=== PATIENT | female | born 1990 | race Caucasian/White ===

== ENCOUNTER → 2022-10-27 14:13 | Outpatient (BNVA) | payer BC, SELFPAY | PROVIDERS: PCP Family Medicine; Visit Provider Nurse Practitioner | DX: I10 Essential (primary) hypertension (principal) | CPT/HCPCS: 80053; 80061; 84443; 85025 ==

== ENCOUNTER 2023-07-01 17:58 | Emergency (ER) | payer MEDICAID, SELFPAY ==
[2023-07-01 18:07] VITALS: BP 169/100; PULSE 110; RESP 17; TEMP 37.4; O2SAT 97
--- NOTE | 2023-07-01 18:29 | ED_ITS ---
HPI - Abdominal Pain General: Chief Complaint: Abdominal Pain Stated Complaint: ABD Pain\N Time Seen by Provider: 07/01/23 18:27 History of Present Illness: 33-year-old female has been sick on and off for several days. She notes that she has had vomiting and diarrhea as well as right upper quadrant pain for that time. She seemed to get better midweek, but then began to get sick again this weekend. She vomited today again. She still experiencing right upper quadrant pain. No fever. No jaundice. Some diarrhea. No blood in the stool. She does not believe she is . No history of belly surgery. Associated Symptoms: Reports diarrhea, nausea and vomiting; Denies chills, fever(s) and hematochezia Review of Systems Const: Denies: fever(s), chills or body aches Eyes: Denies: change in vision Card: Denies: chest pain or palpitations Resp: Denies: dyspnea, productive cough, non-productive cough or wheezing GI: Reports: abdominal pain, nausea, vomiting and diarrhea; Denies: hematochezia : Denies: difficulty voiding Skin/Breast: Denies: rash Neuro: Denies: headache(s), weakness in extremities, dizziness or confusion PFSH ED PFSH: Medical History COVID-19 virus infection Social History Smoking and tobacco/nicotine status: former use of tobacco/nicotine Second hand smoke exposure: No Alcohol intake: never Physical Exam Const: COMMON NORMALS: no acute distress GENERAL APPEARANCE: cooperative; not ill appearing and not frail appearing HENMT: COMMON NORMALS: normocephalic, atraumatic and Normal external nose present HEAD & SCALP: normocephalic and atraumatic FACE & SINUS: normal facial exam and face symmetric NOSE: Normal external nose present Eye: COMMON NORMALS: Equal, round and reactive pupils present and EOMs intact bilaterally PUPIL: Yes Equal, round and reactive pupils present Neck/C-Spine: GENERAL: Yes trachea midline Chest: CHEST: Yes Symmetrical chest wall rise Resp: COMMON NORMALS: normal respiratory effort, No retractions, No use of accessory muscles and clear to auscultation bilaterally AUSCULTATION: clear to auscultation bilaterally Cardio: COMMON NORMALS: regular rate and regular rhythm RATE: regular rate RHYTHM: regular rhythm GI: COMMON NORMALS: Normal to inspection, nondistended, normoactive bowel sounds present and Soft to palpation PALPATION: Yes Soft to palpation and Yes Tenderness to palpation present (GI) Details: RUQ Extremity: COMMON NORMALS: no pedal edema Neuro: ARTEM COMA SCALE: document GCS findings Artem coma scale eye opening: Spontaneous [place] coma scale verbal response: Orientated [place] coma scale motor response: Obey commands Artem coma scale total score: 15 SENSOR Y EXAM: Yes extremities (intact) Psych: COMMON NORMALS: speech normal SPEECH: Yes normal speech Skin: COMMON NORMALS: no rashes or lesions noted GENERAL SKIN EXAM: no rashes or lesions noted Course Vital Signs: Vital signs: Vital Signs Temperature 99.3 F 07/01/23 18:07 Pulse Rate 90 07/01/23 20:55 Respiratory Rate 16 07/01/23 20:55 Blood Pressure 121/74 07/01/23 20:55 Pulse Oximetry 99 07/01/23 20:55 Oxygen Delivery Me thod Room Air 07/01/23 20:00 MDM - Abdominal Pain Medical Decision Making 33-year-old female with right upper quadrant pain. She has a temperature of 99.3. White blood cell count is 10.5, hemoglobin 14. BMP is normal. Liver enzymes are normal. CRP is mildly elevated at 18. Urinalysis is negative. Gallbladder ultrasound shows a small nonspecific hypoechoic lesion in the liver likely a cyst. The gallbladder is normal. Pain is improved. Differential includes biliary dyskinesia or colic, gastritis, viral gastroenteritis, etc. Lab Data 07/01/23 18:41 07/01/23 18:41 Labs/Radiology: Radiology Impressions Gallbladder Ultrasound 07/01/23 18:55 IMPRESSION: 1. 1.6 x 2.0 x 1.6 cm nonspecific hypoechoic lesion in the liver which could represent complex cyst versus other lesion. 2. Normal gallbladder. Laboratory Results WBC 10.52 10^3/uL (3.29-11.43) 07/01/23 18:41 RBC 4.78 10^6/uL (3.85-5.65) 07/01/23 18:41 Hgb 14.00 g/dL (11.27-16.99) 07/01/23 18:41 Hct 42.1 % (36-47) 11/05/23 18:41 MCV 88.1 fl (85-98) 07/01/23 18:41 MCH 29.3 pg (27-33) 07/01/23 18:41 MCHC 33.3 g/dL (30-55) 07/01/23 18:41 RDW 11.8 % (12.1-15.1) L 07/01/23 18:41 Plt Count 274 10^3/cmm (157-399) 07/01/23 18:41 MPV 9.1 fL (7.4-10.4) 07/01/23 18:41 Neut % (Auto) 60.5 % 07/01/23 18:41 Lymph % (Auto) 20.9 % 07/01/23 18:41 [place] % (Auto) 6.7 % 07/01/23 18:41 Eos % (Auto) 10.1 % 07/01/23 18:41 Baso % (Auto) 0.4 % 07/01/23 18:41 Neut # (Auto) 6.36 10^3/uL (1.8-7.7) 07/01/23 18:41 Lymph # (Auto) 2.2 10^3/uL (0.8-4.8) 07/01/23 18:41 Lawrence # (Auto) 0.7 10^3/uL (0.2-0.9) 07/01/23 18:41 Eos # (Auto) 1.1 10^3/uL (0.0-0.8) H 07/01/23 18:41 Baso # (Auto) 0.0 10^3/uL (0.0-0.1) 07/01/23 18:41 Nucleated RBC % (auto) 0 % 07/01/23 18:41 Nucleated RBCs # 0.0 /100WBC 07/01/23 18:41 Sodium 137 mmol/L (136-145) 07/01/23 18:41 Potassium 4.1 mmol/L (3.5-5.1) 07/01/23 18:41 Chloride 101 mmol/L (98-107) 07/01/23 18:41 Carbon Dioxide 25 mmol/L (22-29) 07/01/23 18:41 Anion Gap 15.1 (5-19) 07/01/23 18:41 BUN 13 mg/dL (6-20) 07/01/23 18:41 Creatinine 0.6 mg/dL (0.5-0.9) 07/01/23 18:41 GFR Calculation 115.1 mL/min (90-130) 07/01/23 18:41 Glucose 95 mg/dL (65-115) 07/01/23 18:41 Calculated Osmolality 284 mOsm/kg (285-295) L 07/01/23 18:41 Calcium 9.5 mg/dL (8.5-10.5) 07/01/23 18:41 Total Bilirubin 0.2 mg/dL (0.15-1.2) 07/01/23 18:41 AST 21 U/L (0-32) 07/01/23 18:41 ALT 26 U/L (0-33) 07/01/23 18:41 Alkaline Phosphatase 60 U/L (35-105) 07/01/23 18:41 C-Reactive Protein 18.0 mg/L (0.0-4.9) H 07/01/23 18:41 Total Protein 7.5 g/dL (6.6-8.7) 07/01/23 18:41 Albumin 4.4 g/dL (3.5-5.2) 07/01/23 18: Globulin 3.1 g/dL (1.3-4.6) 07/01/23 18: Lipase 28 U/L (13-60) 07/01/23 18:41 HCG, Qual Negative (Negative) 07/01/23 18:41 Urine Color Yellow (Yellow) 07/01/23 20: Urine Appearance Clear (CLEAR) 07/01/23 20: Urine pH 6 (5-7) 07/01/23 20: Ur Specific [place] 1.015 (1.005-1.030) 07/01/23 20: Urine Protein Neg (Negative) 07/01/23 20: Urine Glucose (UA) Norm (Normal) 07/01/23 20: Urine Ketones Negative (Negative) 07/01/23 20:01 Urine Blood Neg (Negative) 07/01/23 20: Urine Nitrate Negative (Negative) 07/01/23 20: Urine Bilirubin Neg (Negative) 07/01/23 20:01 Urine Urobilinogen Neg mg/dL (Negative) 07/01/23 20:01 Ur Leukocyte Esterase 1+ (Negative) H 07/01/23 20:01 Urine RBC Rare /hpf (0-2) 07/01/23 20:01 Urine WBC 0-4 /hpf (0-5) H 07/01/23 20:01 Ur Squamous Epith Cells 0-4 /hpf (0-5) H 07/01/23 20:01 Amorphous Sediment Not Reportable 07/01/23 20:01 Urine Bacteria Trace /hpf (NONE) 07/01/23 20:01 All radiology interpretation(s) finalized by discharge Discharge Plan Discharge Patient Disposition: Home Clinical Impression: Gastroenteritis Condition: Stable Prescriptions: New Prevacid 30 mg capsule,delayed release(DR/EC) 30 mg PO DAILY Qty: 30 0RF ondansetron 4 mg film 4 mg PO DAILY PRN (Reason: nausea and vomiting) Qty: 10 0RF No Action fenofibrate 54 mg tablet 54 mg PO DAILY Qty: 90 3RF triamcinolone acetonide 0.1 % cream 1 applic topical BID Qty: 80 1RF hydrochlorothiazide 25 mg tablet See Rx Instructions .ROUTE .COMPLEX Qty: 30 0RF Dose Instruction: TAKE 1 TABLET BY MOUTH DAILY Rx Instructions: TAKE 1 TABLET BY MOUTH DAILY sertraline 25 mg tablet See Rx Instructions .ROUTE .COMPLEX Qty: 30 0RF Dose Instruction: TAKE 1 TABLET BY MOUTH DAILY Rx Instructions: TAKE 1 TABLET BY MOUTH DAILY Discharge Orders: Discharge ED (Routine); Ordered 07/01/23 Ordered By: Sunil Leyva Patient Instructions: Gastroenteritis (ED) Activity Restrictions/Additional Instructions: Liquids for the first 24 hours. Use nausea medication scheduled every 4 hours while awake for the first 24 hours, then as needed. Take acid medication as directed. Return for worsening pain despite treatment, vomiting liquids or medications, worsening fever, other concerning symptoms. Follow-up with your doctor this week. Coding Level of Care Code ED [employer] for Yulisa Kaiser
[2023-07-01 18:46] LABS: Basophils % 0.4 %; Eosinophils # 1.1 10^3/uL (0.0-0.8); Eosinophils % 10.1 %; Hematocrit 42.1 % (36-47); Lymphocytes # 2.2 10^3/uL (0.8-4.8); Lymphocytes % 20.9 %; Mean Corpuscular HGB Conc 33.3 g/dL (30-55); Mean Corpuscular Hemoglobin 29.3 pg (27-33); Mean Corpuscular Volume 88.1 fl (85-98); Mean Platelet Volume 9.1 fL (7.4-10.4); Monocytes # 0.7 10^3/uL (0.2-0.9); Monocytes % 6.7 %; Neutrophils # 6.36 10^3/uL (1.8-7.7); Neutrophils % 60.5 %; Nucleated Red Blood Cells % 0 %; Platelet Count 274 10^3/cmm (157-399); Red Blood Count 4.78 10^6/uL (3.85-5.65); Red Cell Distribution Width 11.8 % (12.1-15.1); White Blood Count 10.52 10^3/uL (3.29-11.43)
--- NOTE | 2023-07-01 18:55 | USR_ITS ---
PROCEDURE INFORMATION: Exam: US Abdomen, Limited; Right Upper Quadrant Exam date and time: 07/01/2023 7:03 PM Age: 33 years old Clinical indication: Abdominal pain; Additional info: Ruq pain, vomiting TECHNIQUE: Imaging protocol: Real time ultrasound of the abdomen with image documentation. Limited exam focused on the right upper quadrant. COMPARISON: No relevant prior studies available. FINDINGS: Liver: 17.4 cm liver. 1.6 x 2.0 x 1.6 cm nonspecific hypoechoic lesion in the liver which could represent complex cyst versus other lesion. Gallbladder: Normal 2.1 mm gallbladder wall. Biliary ducts: 2.9 mm common bile duct. Pancreas: Visualized pancreas is unremarkable. Right kidney: 12.3 x 5.3 x 4.7 cm right kidney. Inferior vena cava: 15 mm IVC. US/US gall bladder 49919 IMPRESSION: 1. 1.6 x 2.0 x 1.6 cm nonspecific hypoechoic lesion in the liver which could represent complex cyst versus other lesion. 2. Normal gallbladder.
[2023-07-01 19:01] VITALS: BP 143/100; PULSE 94; RESP 16; O2SAT 98
[2023-07-01 19:07] VITALS: RESP 18; O2SAT 99
[2023-07-01] MEDS: morphine 4 mg/mL SDV 1 mL IVP (19:07)
[2023-07-01] MEDS: ketorolac 30 mg/mL INJ 15 MG IVP (19:07)
[2023-07-01 19:08] LABS: Alanine Aminotransferase 26 U/L (0-33); Albumin Level 4.4 g/dL (3.5-5.2); Alkaline Phosphatase 60 U/L (35-105); Aspartate Amino Transferase 21 U/L (0-32); Blood Urea Nitrogen 13 mg/dL (6-20); Calcium 9.5 mg/dL (8.5-10.5); Carbon Dioxide 25 mmol/L (22-29); Chloride 101 mmol/L (98-107); Creatinine Clr Calc Pharmacy 160.7727; Globulin 3.1 g/dL (1.3-4.6); Glomerular Filtration Rate 115.1 mL/min (90-130); Glucose 95 mg/dL (65-115); Lipase 28 U/L (13-60); Osmolality Calculated 284 mOsm/kg (285-295); Sodium 137 mmol/L (136-145); Total Bilirubin 0.2 mg/dL (0.15-1.2); Total Protein 7.5 g/dL (6.6-8.7)
[2023-07-01] MEDS: ondansetron 2 mg/ML SDV 2 mL 4 MG IVP (19:08)
[2023-07-01] MEDS: sodium chloride 0.9% 1,000 ML 999 ML IV (19:09)
[2023-07-01 19:10] LABS: Anion Gap 15.1 (5-19); Potassium 4.1 mmol/L (3.5-5.1)
[2023-07-01 19:13] LABS: HCG, Serum Qual Negative (Negative)
[2023-07-01 19:30] VITALS: BP 161/115; PULSE 92; RESP 16; O2SAT 96
[2023-07-01 20:00] VITALS: BP 139/96; PULSE 92; RESP 17; O2SAT 98
[2023-07-01] MEDS: lidocaine 2% viscous 15 ML, aluminum-mag hydrox-simethicon 30 ML, sucralfate oral liq 1 GM PO (20:08)
[2023-07-01 20:29] LABS: Bilirubin Urine Neg (Negative); Blood Urine Neg (Negative); Glucose Urine UA Norm (Normal); Ketones Urine Negative (Negative); Leukocyte Esterase Urine 1+ (Negative); Nitrate Urine Negative (Negative); Protein Urine Neg (Negative); Specific Gravity, Urine 1.015 (1.005-1.030); Urine Appearance Clear (CLEAR); Urine Color Yellow (Yellow); Urobilinogen Urine Neg (Negative); pH Urine 6 (5-7)
[2023-07-01 20:30] LABS: Add Urine Culture? No; Add Urine Microscopic? YES; Bacteria Urine TRACE /hpf; RBC Urine RARE /hpf (0-2); Squamous Epithelial Cell Urine 0-4 /hpf (0-5); WBC Urine 0-4 /hpf (0-5)
[2023-07-01 20:55] VITALS: BP 121/74; PULSE 90; RESP 16; O2SAT 99
== END 2023-07-01 20:57 | disposition home or self-care (01) ==
PROVIDERS: Emergency Provider Emergency Medicine
DX: K52.9 Noninfective gastroenteritis and colitis, unspecified (principal); K76.9 Liver disease, unspecified; Z87.891 Personal history of nicotine dependence
CPT/HCPCS: 36415; 76705; 80053; 81001; 83690; 84703; 85025; 86140; 96374; 96375; 99284; J1885; J2270; J2405; J7030

== ENCOUNTER → 2024-03-20 12:12 | Outpatient (BNVA) | payer MEDICAID, SELFPAY | PROVIDERS: PCP Nurse Practitioner Family; Visit Provider Nurse Practitioner Family | DX: I10 Essential (primary) hypertension (principal); E78.5 Hyperlipidemia, unspecified; Z79.899 Other long term (current) drug therapy | CPT/HCPCS: 80053; 80061; 81003; 83036; 84439; 84443; 85025 ==

== ENCOUNTER 2025-08-20 22:07 | Emergency (ER) | payer MEDICAID, SELFPAY ==
[2025-08-20 22:15] VITALS: BP 157/103; PULSE 107; RESP 16; TEMP 37; O2SAT 97; BMI 38.2
--- NOTE | 2025-08-20 22:47 | ED_ITS ---
HPI - Anxiety General: Chief Complaint: Anxiety Stated Complaint: THC Time Seen by Provider: 08/20/25 22:25 Source: patient Mode of arrival: EMS Limitations: no limitations History of Present Illness: Patient is a 35-year-old female with past medical history of anxiety and depression presenting to the emergency department by ambulance for reported shortness of breath following ingestion of a THC gummy. She tells me that she took this to help her sleep, she shortly afterwards had the onset of symptoms of shortness of breath, feeling like her throat was closing, chest pain, and overall sense of panic. She tells me that she has taken THC in the past, a long time ago, and did not have this reaction. On arrival here, and during triage, she states that she feels much better, states that she does not want any workup, and that she is ready to go home. States that she is symptom-free at this time. MD complaint: anxiety, shortness of breath and other (CP) Onset (ago): minute(s) Provoking factors: other (THC) Associated symptoms: Reports chest pain; Deny chills, fever(s), headache(s), nausea, palpitations or vomiting Related Data Previous Rx's ?Medication ?Instructions ?Recorded hydrochlorothiazide 25 mg tablet See Rx Instructions . Route 10/13/24 .COMPLEX 90 days #90 tabs lansoprazole 30 mg capsule,delayed 30 mg PO DAILY 90 d ays #90 caps 10/13/24 release (Prevacid) lisinopril 10 mg tablet See Rx Instructions .Route 0 10/13/24 .COMPLEX 90 days #90 tabs sertraline 25 mg tablet See Rx Instructions .Route 0 10/13/24 .COMPLEX 90 days #90 tabs Allergies Allergy/AdvReac Type Severity Reaction Status Date / Time No Known Allergies Allergy Verified 10/13/24 08:20 Review of Systems General: Reports: 10 or more systems reviewed and unremarkable except in HPI and below Const: Denies: fever(s), chills or fatigue Eyes: Denies: change in vision ENMT: Denies: throat pain, ear or mastoid pain or nasal discharge Card: Reports: chest pain; Denies: palpitations, swelling of feet/ankles or lightheadedness Resp: Reports: dyspnea; Denies: productive cough or wheezing GI: Denies: abdominal pain, nausea, vomiting, diarrhea or constipation : Denies: flank pain, difficulty voiding, dysuria or urinary frequency Musc: Denies: neck pain, back pain or joint pain Skin/Breast: Denies: rash Neuro: Denies: headache(s), numbness in extremities or weakness in extremities Psych: Reports: anxiety PFSH ED PFSH: Medical History GERD (gastroesophageal reflux disease) Anxiety and depression Obesity, morbid, BMI 40.0-49.9 Medication management Wheezing Cough Acute bacterial sinusitis COVID-19 virus infection Social History Smoking and tobacco/nicotine status: never used tobacco/nicotine Second hand smoke exposure: No Alcohol intake: never Physical Exam Const: COMMON NORMALS: no acute distress, patient oriented x3 and no limitations GENERAL APPEARANCE: cooperative, comfortable and well developed ORIENTATION/CONSCIOUSNESS: Yes awake, Yes oriented to person, Yes oriented to place and Yes oriented to time HENMT: COMMON NORMALS: normocephalic, atraumatic and hearing grossly normal bilaterally HEAD & SCALP: normocephalic and atraumatic Eye: COMMON NORMALS: Equal, round and reactive pupils present, EOMs intact bilaterally and conjunctivae normal CONJUNCTIVA: Yes conjunctivae normal PUPIL: Yes Equal, round and reactive pupils present Neck/C-Spine: COMMON NORMALS: full ROM, supple and no JVD Resp: COMMON NORMALS: normal respiratory effort, No retractions, No use of accessory muscles and clear to auscultation bilaterally AUSCULTATION: clear to auscultation bilaterally Cardio: COMMON NORMALS: no JVD, regular rate, regular rhythm, No clicks prese nt (Cardio), No murmurs present (Cardio) and No rub (Cardio) RATE: regular rate RHYTHM: regular rhythm Neuro: COMMON NORMALS: patient oriented x3, moves all extremities, no focal motor deficits and no sensory deficits noted SENSORIUM/ORIENTATION: Yes oriented to person, Yes oriented to place and Yes oriented to time Psych: COMMON NORMALS: mental status grossly normal and Normal thought process present THOUGHT PROCESS: Normal thought process present Skin: COMMON NORMALS: no rashes or lesions noted GENERAL SKIN EXAM: no rashes or lesions noted Course Vital Signs: Vital signs: Vital Signs Temperature 98.6 F 08/20/25 22:15 Pulse Rate 107 H 08/20/25 22:15 Respiratory Rate 16 08/20/25 22:15 Blood Pressure 157/103 08/20/25 22:15 Pulse Oximetry 97 08/20/25 22:15 Oxygen Delivery Me thod Room Air 08/20/25 22:15 MDM - Anxiety Medical Decision Making Patient presented for evaluation of shortness of breath, chest pain, anxiety following THC ingestion. She called the ambulance, but upon triage stated that she was completely symptom-free. She had no complaints, was requesting to go home and did not want any lab workup or imaging. This is very likely related to her THC ingestion, with seeing a panic attack as she has underlying history of anxiety and depression, however she is informed to return if her symptoms worsen. Patient agrees with this plan at this time. No radiology studies performed this visit Discharge Plan Discharge Patient Disposition: Home Clinical Impression: Acute anxiety Condition: Stable Prescriptions: No Action Prevacid 30 mg capsule,delayed release(DR/EC) 30 mg PO DAILY 90 Days Qty: 90 1RF hydrochlorothiazide 25 mg tablet See Rx Instructions .ROUTE .COMPLEX 90 Days Qty: 90 1RF Dose Instruction: TAKE 1 TABLET BY MOUTH DAILY Rx Instructions: TAKE 1 TABLET BY MOUTH DAILY lisinopril 10 mg tablet See Rx Instructions .ROUTE .COMPLEX 90 Days Qty: 90 1RF Dose Instruction: TAKE 1 TABLET BY MOUTH DAILY Rx Instructions: TAKE 1 TABLET BY MOUTH DAILY sertraline 25 mg tablet See Rx Instructions .ROUTE .COMPLEX 90 Days Qty: 90 1RF Dose Instruction: TAKE 1 TABLET BY MOUTH DAILY Rx Instructions: TAKE 1 TABLET BY MOUTH DAILY Discharge Orders: Discharge ED (Routine); Ordered 08/20/25 Ordered By: Luis Carlos Kincaid Referrals: DUNG Miller, DERECK [Primary Care Provider, Family Practice] Patient Instructions: Patient Portal & Benja Instructions Activity Restrictions/Additional Instructions: Emergency Department Discharge Instructions Diagnosis: Acute anxiety reaction following cannabis (THC) use What happened: You came to the emergency department today with shortness of breath, chest pain, and anxiety after using cannabis (THC). These symptoms are common reactions to THC and typically resolve on their own within a few hours. Your examination today showed that your symptoms have completely resolved and you are safe to go home. What to expect: - Your symptoms should remain resolved - If you used edible cannabis products, effects can last up to 8-12 hours, so you may experience some mild residual effects - You should feel completely back to normal within 24 hours Important instructions: Activity: - Do NOT drive or operate machinery for at least 24 hours after cannabis use - Rest at home today - Avoid strenuous physical activity for the remainder of today - Have someone stay with you for the next few hours if possible Medications: - You do not need any medications at this time - [id number] pain relievers like acetaminophen or ibuprofen can be used if needed for headache What to avoid: - Do NOT use any more cannabis or THC products - Avoid alcohol and other substances - Cannabis use can cause anxiety, panic attacks, chest pain, and rapid heart rate, especially at higher doses - THC increases heart rate and blood pressure, which can strain your heart - Young adults who use cannabis have an increased risk of heart attack, particularly within the first hour after use When to return to the emergency department or call 911: - Chest pain that returns or worsens - Severe shortness of breath - Rapid or irregular heartbeat - Severe anxiety or panic that you cannot control - Thoughts of harming yourself - Any other concerning symptoms Follow-up: - Follow up with your primary care doctor within 1-2 weeks - Discuss your cannabis use with your doctor, as regular use can lead to dependence and other health problems - If you are interested in reducing or stopping cannabis use, your doctor can provide resources and support Additional information: - Cannabis-induced anxiety is common and affects 20-25% of people who come to the emergency department with cannabis-related symptoms - Most people are discharged within 24 hours and recover completely - If you choose to use cannabis in the future, be aware that products with CBD (cannabidiol) in addition to THC may cause less anxiety than THC-only products Questions? If you have any questions or concerns, please contact your primary care physician or return to the emergency department if symptoms return or worsen. Print Language: B[place] Coding Level of Care Code ED [employer] Grinder for Yulisa Kaiser
== END 2025-08-20 23:05 | disposition home or self-care (01) ==
PROVIDERS: Emergency Provider Physician Assistant; PCP Nurse Practitioner Family
DX: F41.8 Other specified anxiety disorders (principal); F12.90 Cannabis use, unspecified, uncomplicated
CPT/HCPCS: 99283